=== PATIENT | male | born 2000 | race American Indian/Alaskan Native ===

== ENCOUNTER 2018-02-15 12:51 | Emergency (ER) | payer OTHER ==
[2018-02-15] MEDS ORDERED: MOTRIN PO ONE (15:31)
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
[2018-02-15 16:25] VITALS: BP 115/63
== END 2018-02-15 16:38 | disposition home or self-care (01) ==
LOC: ED 12:51
DX: S13.4XXA Sprain of ligaments of cervical spine, initial encounter (principal); S39.012A Strain of muscle, fascia and tendon of lower back, initial encounter; J45.909 Unspecified asthma, uncomplicated; F17.200 Nicotine dependence, unspecified, uncomplicated; V89.2XXA Person injured in unspecified motor-vehicle accident, traffic, initial encounter; Y93.89 Activity, other specified; Y92.89 Other specified places as the place of occurrence of the external cause; Y99.8 Other external cause status
CPT/HCPCS: 99282

== ENCOUNTER 2018-03-03 11:40 | Emergency (ER) | payer OTHER ==
[2018-03-03 11:48] VITALS: BP 118/74
--- NOTE | 2018-03-03 13:16 | Emergency Department Report ---
Chief Complaint: Adult Asthma Stated Complaint: ASTHMA/MIAH Time Seen by Provider: 03/03/18 13:14 - HPI History of Present Illness: Patient is a 17-year-old -[place] male who is presenting with asthma- like symptoms. Patient is wheezing a week ago but never followed up and decided to come in and get checked out today. Patient denies any current wheeze. Patient does state he has some mild shortness of breath secondary to pollen. Patient states he has not taken any dqpn-[id number] allergy medications and he does have an inhaler. - ROS Review of Systems: All systems are reviewed and are negative - Exam Vital Signs: Vital Signs 03/03/18 11:44 Temperature 98.4 F Pulse Rate 57 L Respiratory 18 Rate Blood Pressure 118/74 O2 Sat by Pulse 100 Oximetry Physical Exam: Lungs clear to auscultation heart tones are normal MSE screening note: Focused history and physical exam performed. Due to findings the following was ordered: ED Medical Decision Making - Medical Decision Making Patient is here today for a nonmedical emergency. Patient has albuterol inhaler and has been taking [id number] allergy medicines which she should. Patient was made of mild medical emergency and after did not pay to be discharged home. ED Disposition for MSE Clinical Impression: Allergic rhinitis Qualifiers: Allergic rhinitis trigger: pollen Allergic rhinitis seasonality: seasonal Qualified Code(s): J30.1 - Allergic rhinitis due to pollen Disposition: MED SCREENING EXAM-LEFT Is pt being admited?: No Does the pt Need Aspirin: No Condition: Stable Referrals: [facility] [Outside] - 3-5 Days
== END 2018-03-03 13:22 | disposition left against medical advice (07) ==
LOC: ED 11:40
DX: J30.9 Allergic rhinitis, unspecified (principal)
CPT/HCPCS: 99281

== ENCOUNTER 2021-05-03 10:10 | Emergency (ER) | payer SELFPAY ==
[2021-05-03 10:18] VITALS: BP 127/78
--- NOTE | 2021-05-03 11:11 | Emergency Department Report ---
- General Chief Complaint: Abdominal Pain Stated Complaint: chest pains Time Seen by Provider: 05/03/21 11:01 Source: patient Mode of arrival: Ambulatory Limitations: No Limitations - History of Present Illness Initial Comments: Patient is a 21-year-old male presents emergency room complaints of URI symptoms that began 2 days ago. He has associated headache, sore throat, dry cough, rhinorrhea, nasal congestion. He denies any fever, productive cough, vomiting, diarrhea, abdominal pain, shortness of breath. He denies any known sick contacts or recent travel. He has not been tested for COVID-19. He has not received the COVID-19 vaccine. He denies any past medical history. No allergies medications. - Related Data Previous Rx's Medication Instructions Recorded Last Taken Type Azithromycin [Zithromax Z-ROBBY] 250 mg PO DAILY 5 Days tab 07/25/15 Unknown Rx predniSONE [Deltasone] 20 mg PO BID #8 tab 07/25/15 Unknown Rx Cyclobenzaprine [Flexeril] 10 mg PO QHS PRN #7 tablet 02/15/18 Unknown Rx Ibuprofen [Motrin] 600 mg PO Q8H PRN #30 tablet 02/15/18 Unknown Rx Benzonatate [Tessalon Perles] 100 mg PO Q8HR PRN #12 capsule 05/03/21 Unknown Rx Fluticasone [Flonase] 1 spray NS QDAY #1 bottle 05/03/21 Unknown Rx Nystas/Diphen/Xyl Visc/Mylanta 30 ml MM Q4H PRN #300 ml 05/03/21 Unknown Rx [Magic Mouthwash] guaiFENesin ER [Mucinex ER] 600 mg PO BID #14 tablet.er 05/03/21 Unknown Rx Allergies Allergy/AdvReac Type Severity Reaction Status Date / Time No Known Allergies Allergy Verified 05/03/21 10:13 ED Review of Systems ROS: Stated complaint: chest pains Other details as noted in HPI Comment: All other systems reviewed and negative ED Past Medical Hx - Past Medical History Hx Asthma: Yes - Surgical History Additional Surgical History: FEMUR - Social History Smoking Status: Never Smoker Substance Use Type: Marijuana - Medications Home Medications: Home Medications Medication Instructions Recorded Confirmed Last Taken Type Azithromycin [Zithromax Z-ROBBY] 250 mg PO DAILY 5 Days tab 07/25/15 Unknown Rx predniSONE [Deltasone] 20 mg PO BID #8 tab 07/25/15 Unknown Rx Cyclobenzaprine [Flexeril] 10 mg PO QHS PRN #7 tablet 02/15/18 Unknown Rx Ibuprofen [Motrin] 600 mg PO Q8H PRN #30 tablet 02/15/18 Unknown Rx Benzonatate [Tessalon Perles] 100 mg PO Q8HR PRN #12 capsule 05/03/21 Unknown Rx Fluticasone [Flonase] 1 spray NS QDAY #1 bottle 05/03/21 Unknown Rx Nystas/Diphen/Xyl Visc/Mylanta 30 ml MM Q4H PRN #300 ml 05/03/21 Unknown Rx [Magic Mouthwash] guaiFENesin ER [Mucinex ER] 600 mg PO BID #14 tablet.er 05/03/21 Unknown Rx ED Physical Exam - General Limitations: No Limitations General appearance: alert, in no apparent distress - Head Head exam: Present: atraumatic, normocephalic - Eye Eye exam: Present: normal appearance - ENT ENT exam: Present: normal orophraynx, mucous membranes moist, TM's normal bilaterally, normal external ear exam, other (clear nasal drainage) - Neck Neck exam: Present: normal inspection, full ROM. Absent: meningismus - Respiratory Respiratory exam: Present: normal lung sounds bilaterally. Absent: respiratory distress, wheezes, rales, rhonchi, stridor, chest wall tenderness, accessory muscle use, decreased breath sounds, prolonged expiratory - Cardiovascular Cardiovascular Exam: Present: regular rate, normal rhythm, normal heart sounds. Absent: systolic murmur, diastolic murmur, rubs, gallop - Neurological Exam Neurological exam: Present: alert, oriented X3 - Psychiatric Psychiatric exam: Present: normal affect, normal mood - Skin Skin exam: Present: warm, dry, intact ED Course Vital Signs 05/03/21 10:17 Temperature 98.4 F Pulse Rate 89 Respiratory 18 Rate Blood Pressure 127/78 O2 Sat by Pulse 100 Oximetry ED Medical Decision Making - Medical Decision Making Patient is a 21-year-old male presents emergency room complaints of URI symptoms that began 2 days ago. He has associated headache, sore throat, dry cough, rhinorrhea, nasal congestion. He denies any fever, productive cough, vomiting, diarrhea, abdominal pain, shortness of breath. He denies any known sick contacts or recent travel. He has not been tested for COVID-19. He has not received the COVID-19 vaccine. He denies any past medical history. No allergies medications. Vitals are normal. On exam clear nasal drainage bilaterally, normal TMs and canals, normal oropharynx, breath sounds are clear bilaterally, no wheezing, no rales, no rhonchi. Symptoms and examination appear most consistent with viral URI. Patient has no clinical signs of bacterial pneumonia or bacterial bronchitis. Patient given medications for symptomatic relief. Advised patient Please take medication as prescribed. May alternate Tylenol and ibuprofen as needed for pain or fever. Increase your fluid intake over the next several days. Follow-up with your primary care doctor for reexamination. Recommend for you to get outpatient COVID-19 testing and quarantine as necessary. Return to emergency room for any new or worsening symptoms or if symptoms are persisting greater than 10 days. Critical care attestation.: If time is entered above; I have spent that time in minutes in the direct care of this critically ill patient, excluding procedure time. ED Disposition Clinical Impression: Viral URI Disposition: DC TO HOME OR SELFCARE Is pt being admited?: No Does the pt Need Aspirin: No Condition: Stable Instructions: Viral Respiratory Infection Additional Instructions: Please take medication as prescribed. May alternate Tylenol and ibuprofen as needed for pain or fever. Increase your fluid intake over the next several days. Follow-up with your primary care doctor for reexamination. Recommend for you to get outpatient COVID-19 testing and quarantine as necessary. Return to emergency room for any new or worsening symptoms or if symptoms are persisting greater than 10 days. Prescriptions: Fluticasone [Flonase] 1 spray NS QDAY #1 bottle Nystas/Diphen/Xyl Visc/Mylanta [Magic Mouthwash] 30 ml MM Q4H PRN #300 ml PRN Reason: sore throat guaiFENesin ER [Mucinex ER] 600 mg PO BID #14 tablet.er Benzonatate [Tessalon Perles] 100 mg PO Q8HR PRN #12 capsule PRN Reason: cough Referrals: KIARA GARNICA MD [Staff Physician] - 2-3 Days [facility] [Provider Group] - 2-3 Days Forms: Work/School Release Form(ED) Time of Disposition: 11:09 Print Language: SOU[place]FR[place]
== END 2021-05-03 11:42 | disposition home or self-care (01) ==
LOC: EDBD → ED 10:10
DX: J06.9 Acute upper respiratory infection, unspecified (principal); B97.89 Other viral agents as the cause of diseases classified elsewhere; J45.909 Unspecified asthma, uncomplicated; F12.90 Cannabis use, unspecified, uncomplicated; Z98.890 Other specified postprocedural states; Z79.899 Other long term (current) drug therapy
CPT/HCPCS: 99282